=== PATIENT | male | born 1955 | race Caucasian/White ===

== ENCOUNTER → 2023-09-19 08:13 | Outpatient (REF) | payer MEDICARE, OTHER, SELFPAY | LOC: DHCBC/DCA 08:13 | PROVIDERS: ATTENDING PHYSICIAN Internal Medicine Cardiovascular Disease; FAMILY PHYSICIAN Family Medicine | DX: I42.8 Other cardiomyopathies (principal); R94.31 Abnormal electrocardiogram [ECG] [EKG] | CPT/HCPCS: 78452; 93017; A9500; J2785 ==

== ENCOUNTER 2023-09-24 05:54 | Day surgery (SDC) | payer MEDICARE, OTHER, SELFPAY ==
--- NOTE | 2023-08-19 09:25 | CM ---
Addendum entered by Cary Ewing 09/17/23 13:00:
Spoke again with patient. He has not yet viewed the online education program and was reminded to do so.
Original Note:
Patient is scheduled for an elective R TKR on 09/24/23- he is a same day patient. Spoke with patient prior to surgery via telephone. Patient had a R THR at in March 2023. Reintroduced role of Orthopedic Navigator. Patient reports that he lives
alone in a two story home. There is one step to enter and a flight of steps to the second floor. He currently functions independently. He has a cane, rolling walker, commode, firm cushions, long handled shoe horn and sock aid. He has never had [facility]N
services. PCP is Dr. Carlos Farah.
Discussed orthopedic program and post surgical plans. Reviewed that he will have VN services initially (medicare.gov website and ratings reviewed) and will then start outpatient PT. Patient selects [facility] (face sheet faxed to [facility] to facilitate
confirmation of benefits) for his home care needs and will go to [facility] for outpatient [facility].
Patient is in agreement with plan and states that he will initially go to his sister's home after surgery (her home is two stories with one step to enter and a flight to the second floor).
Patient will complete online education.
Plan: Orthopedic Navigator will remain available to assist with the care of patient and will reassess discharge needs after surgery.
[2023-09-02 08:23] VITALS: BMI 42.7
--- NOTE | 2023-09-02 09:49 | HPS.HSE ---
Family Physician
-
Family Physician: Carlos Farah
Chief Complaint
-
Advanced primary osteoarthritis of the left knee. Same-day surgery.
History of Present Illness
The patient is a 67-year-old male presenting today for advanced primary osteoarthritis of the left knee. The patient previously underwent an uncomplicated right total hip arthroplasty in early March [address] Malik Galvin. He
returns to [facility] today with complaints of significant left knee pain associated with his osteoarthritis. He notes that his current left knee pain is greatly interfering with his activities of daily living and is overall impacting his
quality of life. He has tried and failed multiple conservative treatment measures in the past for his left knee pain. These conservative treatment measures include physical therapy, self-directed therapeutic exercises, activity modification,
corticosteroid injections, medical management with Tylenol and NSAIDs, and the application of ice and/or heat. Recent x-ray findings of the left knee demonstrated severe medial compartment arthrosis and end-stage tricompartmental degenerative
changes. He was determined to be in need of a left total knee arthroplasty. He denies any current complaints today such as chest pain, shortness of breath, palpitations, nausea, vomiting, lightheadedness, dizziness, cough, sore throat, or fever.
Medical History
Past Medical History
Past Medical History: Reports Other
Additional Past Medical History:
1. Osteoarthritis, status post right total hip arthroplasty, 03/2023, by Dr. Malik Galvin.
2. Hypertension.
3. PACs and PVCs, asymptomatic.
4. Chronic peripheral edema.
5. Bilateral pulmonary embolism with large clot burden, 03/2020, likely provoked by immobility; treated with Xarelto. Resolution noted on chest CT 01/23/2021.
6. Obstructive sleep apnea, compliant with CPAP.
7. GERD.
8. Colon polyps.
9. Umbilical hernia.
10. Nephrolithiasis.
11. Benign paroxysmal positional vertigo.
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
13. Multilevel degenerative disc disease.
14. Sciatica.
15. Gout.
16. COVID 19, 02/2023, without residual side effects.
17. Prediabetes, A1c 5.8.
18. Morbid obesity, BMI 42.7.
Past Surgical History: Reports Other
Additional Past Surgical History:
1. Right total hip arthroplasty, 03/2023, by Dr. Malik Galvin.
2. Cardiac catheterization.
3. Colonoscopy x3.
4. Endoscopy.
Social History
Tobacco: Non-smoker
Alcohol: Occasional
Living: Alone (The patient lives in a two-story home independently. He reports that he will be staying at his sister's two-story home post-operatively. )
Family History
Family History: Not pertinent
Allergies / Home Medications
Allergy/Medication List:
MEDICATIONS:
1. Aspirin 81 mg p.o. at bedtime.
2. Cetirizine 10 mg p.o. at bedtime.
3. Ferrous Sulfate 325 mg p.o. daily at 4 PM.
4. Joint Support Complex 1 capsule p.o. daily.
5. Multivitamin 1 tab p.o. daily.
6. Potassium citrate 15 mEq p.o. twice a day.
7. Tart [place]camo Extract 1500 mg p.o. daily.
8. Amlodipine 5 mg p.o. daily at 4 PM.
9. Cholecalciferol 25 mcg p.o. daily.
10. Green-lipped mussel 750 mg p.o. twice a day.
11. Turmeric 1000 mg p.o. twice a day.
ALLERGIES: No known allergies.
Review of Systems
-
A 12 point ROS was completed and negative except as noted: Yes
Physical Exam
Vital Signs
Blood pressure 134/80. Heart rate 60. Respirations 18. Pulse ox 98% on room air.
Height 5 feet, 8.5 inches. Weight 129.2 kg. BMI 42.7.
Physical Exam
General: Well Developed, Well Nourished and No Apparent Distress
HEENT: NormoCephalic, Moist mucous membranes, Atraumatic and PERRLA
Respiratory: Clear
Cardiac: Regular Rhythm
GI: Soft, Non Tender, Non Distended and Other (Obese. )
Musculoskeletal: Edema, Left Lower Extremity, Edema, Right Lower Extremity and Other (Left knee: No joint effusion. Knee AROM of terminal extension to 0 degrees to flexion >120 degrees. Mild to moderate joint line tenderness. Neurovascular intact.
Sensation intact. Dorsalis pedis pulse +. )
Skin: Warm and Dry
Neuro: AO x 3 and Nonfocal/grossly intact
Laboratory Results
-
DIAGNOSTIC STUDIES as of 09/02/2023: White blood cell count 7.7. Hemoglobin 15.0. Platelet count 268,000. Sodium 138. Potassium 4.6. BUN 19. Creatinine 1.1. Glucose 98. Hemoglobin A1c 5.8. Calcium 9.8. AST 25. ALT 24. Albumin 4.6. MRSA screen
negative.
EKG provided by Cardiology.
Nuclear stress test 09/19/2023: Negative EKG for ischemia. No perfusion evidence of ischemia or infarction. The ejection fraction is 57%. This is a moderate risk study due to the pharmacologic agent used.
Echocardiogram 03/14/2023 (per cardiac clearance note): Ejection fraction is 60-65% No significant valvular disease.
Cardiac catheterization 04/18/2020 - No obstructive coronary artery disease. Top-normal to mildly elevated filling pressures. Normal left ventricular systolic function without significant valvulopathy.
Impression/Plan
-
CLEARANCES:
1. Primary Medical, Dr. Carlos Farah - cleared pending cardiology.
Primary medical phone number: [phone].
2. Cardiology, Dr. Jhony Andrea - cleared if pre-operative nuclear stress test is without ischemia. No ischemia was noted.
3. Dental waived.
IMPRESSION/PLAN:
1. Advanced primary osteoarthritis of the left knee in need of a left total knee arthroplasty by Dr. Malik Galvin on 09/24/2023. The benefits and risks of the procedure have been explained to the patient. The patient understands these risks and
wishes to proceed.
2. DVT prophylaxis: Xarelto 10 mg p.o. nightly starting the evening of his surgery and bilateral venous compression devices. Xarelto will be continued for 28 days post-surgery given his previous pulmonary embolism with large clot burden. Plasma flow
devices have been purchased to be used upon discharge.
3. Pain management: We will use [place] as needed for moderate to severe post-operative pain. We will also include Tylenol as needed for mild pain and a Prednisone taper. He tolerated this pain medication regimen well after his prior right total hip
arthroplasty.
4. Elevated BMI: Due to his elevated BMI >35, he is considered to be at an increased risk of post-surgical infection. Because of this, he has been prescribed Cefadroxil 500 mg p.o. twice a day for one week post-surgery. Probiotic use will be highly
encouraged while on this antibiotic.
Patient's phone number: [phone].
Patient's contact (Eden Landaverde - Sister): [phone].
[2023-09-02 10:33] LABS: Hematocrit 43.7 % (39.0-52.0); Mean Corp Hgb Conc. 34.3 g/dL (33.0-37.0); Mean Corpuscular Hgb 32.2 pg (27.0-31.0); Mean Corpuscular Volume 93.8 fL (80.0-94.0); Mean Platelet Volume 10.6 fL (7.4-10.4); Platelet Count 268 10^3/uL (130-400); Red Blood Cell Count 4.66 10^6/uL (4.70-6.10); Red Cell Dist. Width 12.8 % (11.5-14.5); White Blood Cell Count 7.7 10^3/uL (4.8-10.8)
[2023-09-02 11:13] LABS: Glycohemoglobin (HgbA1c) 5.8 % (4.0-5.6)
[2023-09-02 11:26] LABS: ALT (SGPT) 24 U/L (0-50); AST (SGOT) 25 U/L (17-59); Albumin 4.6 g/dl (3.5-5.0); Alkaline Phosphatase 62 U/L (38-126); Blood Urea Nitrogen 19 mg/dl (9-20); Calcium 9.8 mg/dl (8.4-10.2); Carbon Dioxide 27 mmol/L (22-30); Chloride 100 mmol/L (98-107); Estimated Creatinine Clearance 87 ml/min; Glucose 98 mg/dl (70-99); Potassium 4.6 mmol/L (3.5-5.1); Sodium 138 mmol/L (135-145); Total Bilirubin 0.8 mg/dl (0.2-1.3); Total Protein 7.3 g/dl (6.3-8.2); eGFR > 60.00
[2023-09-02 14:33] VITALS: BMI 42.7
[2023-09-24] VITALS (14 sets, daily range): BP systolic 134–157; BP diastolic 74–85; PULSE 60; O2SAT 94; BMI 42.7
[2023-09-24] MEDS: NORMOSOL-R 1000 IV (06:20)
[2023-09-24] MEDS: CELEBREX 200 MG PO (06:20)
[2023-09-24] MEDS: TYLENOL 650 MG PO (06:20)
--- NOTE | 2023-09-24 10:00 | CM ---
Patient had planned L TKR today. Met with patient and his friend at bedside to review discharge plans. Patient will be returning home today with services through [facility]. On Friday, 09/28, patient will start outpatient PT at [facility].
Reviewed MD follow up in two weeks and patient has already scheduled his appointment.
Patient has his rolling walker here with him.
PT and [facility] were kept updated as to progress and discharge plans.
[2023-09-24] MEDS: ANCEF 5 IV (11:11)
== END 2023-09-24 11:36 | disposition home health service (06) ==
LOC: SDS 05:54
PROVIDERS: ATTENDING PHYSICIAN Orthopaedic Surgery; FAMILY PHYSICIAN Family Medicine; OTHER PHYSICIAN Internal Medicine Cardiovascular Disease; OTHER PHYSICIAN Physician Assistant
DX: M17.12 Unilateral primary osteoarthritis, left knee (principal); E66.01 Morbid (severe) obesity due to excess calories; Z68.41 Body mass index [BMI] 40.0-44.9, adult
CPT/HCPCS: 27447; 36415; 73560; 80053; 83036; 85027; 87070; 97116; 97161; C1713; C1776

== ENCOUNTER → 2024-02-13 14:05 | Outpatient (REF) | payer MEDICARE, OTHER, SELFPAY | LOC: HWRAD 14:05 | PROVIDERS: ATTENDING PHYSICIAN Specialist; FAMILY PHYSICIAN Family Medicine | DX: N20.0 Calculus of kidney (principal) | CPT/HCPCS: 76775 ==

== ENCOUNTER 2025-01-05 06:25 | Day surgery (SDC) | payer MEDICARE, OTHER, SELFPAY | END 2025-01-05 09:09 | disposition home or self-care (01) | LOC: GI 06:25 | PROVIDERS: ATTENDING PHYSICIAN Internal Medicine Gastroenterology | DX: Z12.11 Encounter for screening for malignant neoplasm of colon (principal); K64.8 Other hemorrhoids; D12.0 Benign neoplasm of cecum; K63.5 Polyp of colon; K63.89 Other specified diseases of intestine; Z86.0100 Personal history of colon polyps, unspecified | CPT/HCPCS: 45380; 88305 ==

== ENCOUNTER → 2025-04-25 07:42 | Outpatient (REF) | payer MEDICARE, OTHER, SELFPAY | LOC: HWRAD 07:42 | PROVIDERS: ATTENDING PHYSICIAN Family Medicine | DX: R10.9 Unspecified abdominal pain (principal) | CPT/HCPCS: 76700 ==